=== PATIENT | male | born 1955 | race Caucasian/White ===

== ENCOUNTER 2019-11-01 21:49 | Emergency (ER) | payer OTHER, SELFPAY ==
[2019-11-01 21:51] VITALS: BP 130/67; PULSE 96; RESP 18; TEMP 38.2; O2SAT 97; BMI 31.4
--- NOTE | 2019-11-01 21:54 | ED_ITS ---
Entered by Zuleima Antoine, acting as scribe for Jose Alston MD HPI - Fall General: Chief Complaint: Fall Stated Complaint: Fall Time Seen by Provider: 11/01/19 21:52 Source: patient and EMS Mode of arrival: EMS History of Present Illness: HPI Narrative: 64 y/o male presents to the ED post fall. Pt states he tripped and fell while getting out of his truck, this evening. When he fell, he hit his head. Pt denies any neck pain, LOC or confusion. His main concern is getting back to his truck, which is parked at a local hotel. Pt states he paid for a hotel room and he intends to stay the night there. complaint: fall Onset (ago): hour(s) Fall from: standing Loss of consciousness: None Prolonged down time: no Context: tripped/slipped Location of injury: head Associated symptoms-after fall: Reports headache(s); Denies abdominal pain, chest pain or neck pain Review of Systems Const: Denies: fever, chills, body aches or change in appetite Eyes: Denies: blurry vision or eye discomfort ENMT: Denies: throat pain or dental pain Card: Denies: chest pain Resp: Denies: shortness of breath GI: Denies: abdominal pain, nausea, vomiting or diarrhea : Denies: painful urination Musc: Denies: neck pain or back pain Skin/Breast: Reports: other (abrasions ); Denies: rash Neuro: Reports: headache Psych: Denies: depression Hserif/Lymph: Denies: easy bruising All/Imm: Denies: hives PFS ED PFSH: Social History Smoking and tobacco status: never smoked Physical Exam Const: COMMON NORMALS: no apparent distress, oriented x3 and healthy appearing HENMT: COMMON NORMALS: head/scalp not atraumatic HEAD & SCALP: not atraumatic Eye: COMMON NORMALS: PERRL and EOMs intact bilaterally PUPIL: Yes PERRL Neck/C-Spine: COMMON NORMALS: full ROM and supple Chest: COMMONS NORMALS: inspection of chest normal and palpation of chest normal Resp: COMMON NORMALS: normal respiratory effort, no retractions, no use of accessory muscles and clear to auscultation bilaterally AUSCULTATION: clear to auscultation bilaterally Cardio: COMMON NORMALS: regular rate, regular rhythm and no murmurs RATE: regular rate RHYTHM: regular rhythm GI: COMMON NORMALS: normal to inspection, nondistended, normoactive bowel sounds, soft to palpation, non-tender and no masses PALPATION: Yes soft Extremity: COMMON NORMALS: normal to inspection and full ROM Neuro: COMMON NORMALS: oriented x3, moves all extremities and no focal motor deficits Psych: COMMON NORMALS: mental status grossly normal, thought process normal and cooperative THOUGHT PROCESS: normal thought process Skin: NARRATIVE SKIN EXAM: Small less than 1 cm laceration to posterior scalp no bleeding at this time. WOUNDS: Yes wounds noted Course Vital Signs: Vital signs: Vital Signs Temperature 100.8 F H 11/01/19 21:51 Pulse Rate 97 11/01/19 23:00 Respiratory Rate 18 11/01/19 23:00 Blood Pressure 117/64 11/01/19 23:00 Pulse Oximetry 96 11/01/19 23:00 MDM - Fall MDM Narrative: Medical decision making narrative: Patient presents with a head laceration from a fall. Patient's head CT here was negative. Patient refused to have his wound repaired. Patient stable for discharge at this time. He has no other injuries noted. Lab Data: Labs: Lab Results 11/01/19 Range/Units 22:05 Influenza Type A A g Negative (Negative) POC Influenza B Ag Negative (Negative) Imaging Data^: CT Head: Radiologist's impression: [address] [address] [address] Scan Report Signed Patient: Andre Cosby Unit #: [id number] : 1955 Age/Sex: 64 / M ADM Date: 11/01/19 Loc: ER Room/Bed: Attending Dr: Ordering Provider/Ordering MD: Jose Alston MD Date of Service: 11/01/19 Procedure(s): CT head wo con* [id number] Accession Number(s): [id number] Report Number: [id number] PROCEDURE INFORMATION: Exam: CT Head Without Contrast Exam date and time: 11/01/2019 10:11 PM Age: 64 years old Clinical indication: Injury or trauma; Fall; Initial encounter TECHNIQUE: Imaging protocol: Computed tomography of the head without contrast. Total DLP: 890.22 mGy-cm Radiation optimization: All CT scans at this facility use at least one of these dose optimization techniques: automated exposure control; mA and/or kV adjustment per patient size (includes targeted exams where dose is matched to clinical indication); or iterative reconstruction. COMPARISON: No relevant prior studies available. FINDINGS: Brain: Mild atrophy and mild white matter chronic microvascular changes are noted. No hemorrhage or CT evidence of acute infarction is seen. Ventricles: Normal. No ventriculomegaly. Bones/joints: Unremarkable. No acute fracture. Sinuses: Visualized sinuses are unremarkable. No fluid levels. Mastoid air cells: Visualized mastoid air cells are well aerated. Soft tissues: Soft tissue swelling is seen in the scalp at the vertex. CT/CT head wo con* [id number] IMPRESSION: No acute intracranial abnormality. Discharge Plan Discharge Patient Disposition: Home, Self-Care Clinical Impression: Laceration of head Fall Qualifiers: Encounter type: initial encounter Qualified Code(s): W19.XXXA - Unspecified fall, initial encounter Condition: Stable Discharge Orders: Discharge Order (Routine); Ordered 11/01/19 Ordered By: Jose Alston Discharge Diet: Advance as tolerated Discharge Activity: Resume usual activity Patient Instructions: Laceration (ED) Discharge Date/Time: 11/01/19 23:00 Coding Level of Care Code ED Supervisor Stitching Department for Chg Fwd Exam Comprehensive The documentation recorded by the Arash bueno Ashley, accurately reflects the service I personally performed and the decisions made by Gamaliel vincent Korby, MD
[2019-11-01] MEDS: acetaminophen 500 mg Tablet 1000 MG PO (22:05)
[2019-11-01 22:28] LABS: Influenza A by IFA Negative (Negative)
[2019-11-01 22:29] LABS: Influenza B by IFA Negative (Negative)
[2019-11-01 23:00] VITALS: BP 117/64; PULSE 97; RESP 18; O2SAT 96
== END 2019-11-01 23:00 | disposition home or self-care (01) ==
LOC: ER 23:01
PROVIDERS: Emergency Provider Emergency Medicine
DX: S01.01XA Laceration without foreign body of scalp, initial encounter (principal); W01.0XXA Fall on same level from slipping, tripping and stumbling without subsequent striking against object, initial encounter
CPT/HCPCS: 12345; 70450; 87804; 99281; 99283